=== PATIENT | male | born 1995 | race American Indian/Alaskan Native ===

== ENCOUNTER 2018-11-05 15:43 | Emergency (ER) | payer OTHER ==
[2018-11-05] MEDS ORDERED: ZOFRAN ODT PO ONE (15:48)
--- NOTE | 2018-11-05 15:48 | Emergency Department Report ---
Blank Doc - Documentation Documentation: This is a 23-year-old male that presents with abdominal pain with n/v. This initial assessment/diagnostic orders/clinical plan/treatment(s) is/are subject to change based on patient's health status, clinical progression and re- assessment by fellow clinical providers in the ED. Further treatment and workup at subsequent clinical providers discretion. Patient/guardians urged not to elope from the ED as their condition may be serious if not clinically assessed and managed. Initial orders include: 1- Patient sent to [facility] for further evaluation and treatment 2-labs 3- UA
[2018-11-05] MEDS ORDERED: ZOFRAN ODT ONE (15:52)
[2018-11-05 16:12] LABS: Basophils % (Auto) 0.3 % (0.0-1.8); Eosinophils % (Auto) 0.6 % (0.0-4.3); Hematocrit 46.7 % (35.5-45.6); Hemoglobin 15.8 gm/dl (11.8-15.2); Lymphocytes # (Auto) 2.1 K/mm3 (1.2-5.4); Lymphocytes % (Auto) 34.5 % (13.4-35.0); Mean Corpuscular HGB Conc 34 % (32-34); Mean Corpuscular Volume 87 fl (84-94); Monocytes # (Auto) 0.4 K/mm3 (0.0-0.8); Monocytes % (Auto) 6.4 % (0.0-7.3); Platelet Count 194 K/mm3 (140-440); Red Blood Count 5.36 M/mm3 (3.65-5.03); Red Cell Distribution Width 13.1 % (13.2-15.2)
[2018-11-05 17:01] LABS: Alanine Aminotransferase 37 units/L (7-56); Albumin 5.1 g/dL (3.9-5); BUN/Creatinine Ratio 11; Blood Urea Nitrogen 11 mg/dL (9-20); Hemolysis Index 87
[2018-11-05 17:12] LABS: Bilirubin,Direct 0.3 mg/dL (0-0.2)
[2018-11-05] MEDS ORDERED: NACL 0.9% 1000 ML 1,000 ML IV ONE (17:19)
[2018-11-05] MEDS ORDERED: MORPHINE IV ONE (17:20)
--- NOTE | 2018-11-05 17:24 | Emergency Department Report ---
Vomiting/Diarrhea - HPI Chief Complaint: Nausea/Vomiting/Diarrhea Stated Complaint: VOMITTING BLOOD/STOMACH PAIN Time Seen by Provider: 11/05/18 15:47 Duration: 3 Days Severity: severe Nausea/Vomiting Severity: Severe Diarrhea Severity: Moderate Pain Location: Generalized Pain Severity: Severe Symptoms: Yes Watery Diarrhea, Yes Able to Tolerate Fluids, No Bloody diarrhea, No Fever, No Recent Unusual Foods, No Recent Untreated Water, No Recent use of Antibiotics, No Family w/ Similar Symptoms, No Contacts w/ Similar Symptoms, No Rash, No Hematuria, No Recent URI Symptoms Other History: This is a 23-year-old -[place] male who presents with diffuse abdominal pain for 2-3 days. No past medical history. Patient reports pain as sharp stabbing pain that is constant. The patient also admits to diarrhea is liquid and frequent. Patient reports abdominal pain is primarily right upper quadrant. He denies recent travel, unusual foods, urinary frequency, urgency, dysuria. ED Review of Systems ROS: Stated complaint: VOMITTING BLOOD/STOMACH PAIN Other details as noted in HPI Constitutional: denies: chills, fever Respiratory: denies: cough, shortness of breath, wheezing Cardiovascular: denies: chest pain, palpitations Gastrointestinal: abdominal pain, nausea, vomiting, diarrhea. denies: constipation Genitourinary: denies: urgency, dysuria Musculoskeletal: denies: back pain, joint swelling, arthralgia Skin: denies: rash, lesions Neurological: denies: headache, weakness, paresthesias Psychiatric: denies: anxiety, depression ED Past Medical Hx - Social History Smoking Status: Never Smoker Substance Use Type: Alcohol - Medications Home Medications: Home Medications Medication Instructions Recorded Confirmed Last Taken Type Ciprofloxacin HCl [Cipro] 500 mg PO BID #10 tablet 11/05/18 Unknown Rx Loperamide HCl [Imodium A-D] 2 mg PO DAILY PRN #14 tablet 11/05/18 Unknown Rx Ondansetron [Zofran Odt] 4 mg PO Q8HR PRN #15 tab.rapdis 11/05/18 Unknown Rx Vomiting Diarrhea Exam - Exam General: Vital signs noted. No distress. Alert and acting appropriately. HEENT: Yes Pharyngeal Erythema (erythematous posterior pharynx, uvula midline), Yes Moist Mucous Membranes, No Pharyngeal Exudates, No Rhinorrhea, No Conjuctival Injection, No Frontal Tenderness, No Maxillary Tenderness Neck: No Adenopathy, No Rigidity Lungs: Yes Clear Lung Sounds, Yes Good Air Exchange, No Wheezes, No Stridor, No Cough, No Nasal Flaring, No Retractions, No Use of Accessory Muscles Heart exam: Regular: Yes, Murmur: No, Tachycardia: No Abdomen: Tenderness: Yes (left lower quadrant), Peritoneal Signs: No, Distention: No, Hyperactive Bowel sounds: No Skin exam: Rash: No, Edema: No, Normal turgor: Yes Neurologic: Alert and oriented, no deficits. Musculoskeletal: Unremarkable. ED Course Vital Signs 11/05/18 15:47 Temperature 97.6 F Pulse Rate 54 L Respiratory 16 Rate Blood Pressure 134/53 O2 Sat by Pulse 99 Oximetry ED Medical Decision Making - Lab Data Result diagrams: 11/05/18 16:01 11/05/18 16:01 Lab Results 11/05/18 11/05/18 11/05/18 Range/Units 16:01 16:01 20:00 WBC 6.0 (4.5-11.0) K/mm3 RBC 5.36 H (3.65-5.03) M/mm3 Hgb 15.8 H (11.8-15.2) gm/dl Hct 46.7 H (35.5-45.6) % MCV 87 (84-94) fl MCH 30 (28-32) pg MCHC 34 (32-34) % RDW 13.1 L (13.2-15.2) % Plt Count 194 (140-440) K/mm3 Lymph % (Auto) 34.5 (13.4-35.0) % Parker % (Auto) 6.4 (0.0-7.3) % Eos % (Auto) 0.6 (0.0-4.3) % Baso % (Auto) 0.3 (0.0-1.8) % Lymph # 2.1 (1.2-5.4) K/mm3 Parker # 0.4 (0.0-0.8) K/mm3 Eos # 0.0 (0.0-0.4) K/mm3 Baso # 0.0 (0.0-0.1) K/mm3 Seg Neutrophils % 58.2 (40.0-70.0) % Seg Neutrophils # 3.5 (1.8-7.7) K/mm3 Sodium 140 (137-145) mmol/L Potassium 3.9 (3.6-5.0) mmol/L Chloride 101.8 (98-107) mmol/L Carbon Dioxide 22 (22-30) mmol/L Anion Gap 20 mmol/L BUN 11 (9-20) mg/dL Creatinine 1.0 (0.8-1.5) mg/dL Estimated GFR > 60 ml/min BUN/Creatinine Ratio 11 % Glucose 96 (75-100) mg/dL Calcium 10.0 (8.4-10.2) mg/dL Total Bilirubin 2.10 H (0.1-1.2) mg/dL Direct Bilirubin 0.3 H (0-0.2) mg/dL Indirect Bilirubin 1.8 mg/dL AST 30 (5-40) units/L ALT 37 (7-56) units/L Alkaline Phosphatase 53 (35-129) units/L Total Protein 8.1 (6.3-8.2) g/dL Albumin 5.1 H (3.9-5) g/dL Albumin/Globulin Ratio 1.7 % Lipase 19 (13-60) units/L Urine Color Yellow (Yellow) Urine Turbidity Clear (Clear) Urine pH 6.0 (5.0-7.0) Ur Specific [place] 1.031 H (1.003-1.030) Urine Protein <15 mg/dl (Negative) mg/dL Urine Glucose (UA) Neg (Negative) mg/dL Urine Ketones 80 (Negative) mg/dL Urine Blood Neg (Negative) Urine Nitrite Neg (Negative) Urine Bilirubin Neg (Negative) Urine Urobilinogen < 2.0 (<2.0) mg/dL Ur Leukocyte Esterase Neg (Negative) Urine WBC (Auto) 2.0 (0.0-6.0) /HPF Urine RBC (Auto) 3.0 (0.0-6.0) /HPF U Epithel Cells (Auto) < 1.0 (0-13.0) /HPF Urine Mucus 1+ /HPF - Radiology Data Radiology results: report reviewed PROCEDURE: CT ABDOMEN PELVIS WO CON TECHNIQUE: CT examination of the abdomen without IV contrast CT examination of the pelvis without IV contrast Lack of oral and IV contrast limits the examination. HISTORY: LLQ tenderness COMPARISONS: None FINDINGS: No acute lung base finding. No acute fracture. Normal noncontrast appearance of the liver, gallbladder, adrenals, pancreas, and spleen. Normal caliber abdominal aorta and IVC. Normal- appearing kidneys and proximal ureters. Distal ureters are obscured by adjacent structures. Intact anterior abdominal wall without hernia. No evidence of retroperitoneal adenopathy. No mesenteric mass. Normal-appearing stomach and duodenum. No small bowel distention in the abdomen and pelvis. There appears to be a nonspecific collection of amorphous soft tissue just above the urinary bladder which appears contiguous with pelvic small bowel, series 2 image 138. This may reflect summation artifact from adjacent loops of small bowel. A small bowel or mesenteric focal abnormality is a possibility measuring approximately 3.6 x 4.4 cm. Nonspecific slight cul-de-sac free fluid may be reactive. Normal-appearing urinary bladder, prostate, seminal vesicles, and rectum. No sigmoid colon abnormality. No gross ascites, free air, or colonic distention. Slight luminal density in the ascending colon may reflect ingested medicine. Normal-appearing cecum and terminal ileum. Normal appendix. IMPRESSION: Nonspecific heterogeneous soft tissue prominence in the lower pelvis mesenteric fat may be summation artifact from adjacent small bowel loops. Differential includes edema, inflammation, or focal small bowel infection. Consider also mesenteric or small intestinal mass in this region Slight cul-de-sac pelvic free fluid may be reactive - Medical Decision Making Patient is stable and was examined by me. Vitals stable. Obtained labs and CT of abdomen. Bilirubin and albumin elevated. CT dictated by radiologist and report reviewed by myself. Nonspecific heterogeneous soft tissue prominence in the lower pelvis mesenteric fat may be summation artifact from adjacent small bowel loops. Differential includes edema, inflammation, or focal small bowel infection. Consider also mesenteric or small intestinal mass in this region. Slight cul-de-sac pelvic free fluid may be reactive. Given Pepcid, Zofran, morphine and normal saline IV in ER. Plan to start Imodium, Cipro, and zofran for gastritis. Referral to ethanol maintenance mechanic for continued care. Discussed plan with patient and agreed to plan. No further questions noted by the patient. Discharged home in stable condition. Follow up with PCP in 2-3 days. Critical care attestation.: If time is entered above; I have spent that time in minutes in the direct care of this critically ill patient, excluding procedure time. ED Disposition Clinical Impression: Nausea, vomiting, and diarrhea, Gastroenteritis Abdominal pain Qualifiers: Abdominal location: generalized Qualified Code(s): R10.84 - Generalized abdominal pain Disposition: DC-01 TO HOME OR SELFCARE Is pt being admited?: No Does the pt Need Aspirin: No Condition: Stable Instructions: Abdominal Pain (ED), Acute Nausea and Vomiting (ED), Acute Diarrhea (ED) Additional Instructions: Frequent hand washing is important to reduce spread. Prompt disinfection of contaminated surfaces with household chlorine bleach- based artist's model and washing of soiled clothing and bedding should be advised. If food or water is thought to be contaminated, it should be avoided. Increase fluid intake. Drinks high in sugars such as carbonated soft drinks, fruit juice, and highly sugared liquids should be avoided. Prescriptions: Ciprofloxacin HCl [Cipro] 500 mg PO BID #10 tablet Loperamide HCl [Imodium A-D] 2 mg PO DAILY PRN #14 tablet PRN Reason: Diarrhea Ondansetron [Zofran Odt] 4 mg PO Q8HR PRN #15 tab.rapdis PRN Reason: Nausea And Vomiting [facility] [Outside] - 3-5 Days [facility] [Provider Group] - 3-5 Days Forms: Work/School Release Form(ED) Time of Disposition: 20:50
[2018-11-05] MEDS ORDERED: PEPCID IV ONE ×2 (17:46→17:49)
[2018-11-05 17:58] VITALS: BP 137/62
--- NOTE | 2018-11-05 18:55 | Cat Scan Report ---
PROCEDURE: CT ABDOMEN PELVIS WO CON TECHNIQUE: CT examination of the abdomen without IV contrast CT examination of the pelvis without IV contrast Lack of oral and IV contrast limits the examination. HISTORY: LLQ tenderness COMPARISONS: None FINDINGS: No acute lung base finding. No acute fracture. Normal noncontrast appearance of the liver, gallbladde r, adrenals, pancreas, and spleen. Normal caliber abdominal aorta and IVC. Normal-appearing kidneys a nd proximal ureters. Distal ureters are obscured by adjacent structures. Intact anterior abdominal wa ll without hernia. No evidence of retroperitoneal adenopathy. No mesenteric mass. Normal-appearing st omach and duodenum. No small bowel distention in the abdomen and pelvis. There appears to be a nonspecific collection of amorphous soft tissue just above the urinary bladder which appears contiguous with pelvic small bowel, series 2 image 138. This may reflect summation jade fact from adjacent loops of small bowel. A small bowel or mesenteric focal abnormality is a possibili ty measuring approximately 3.6 x 4.4 cm. Nonspecific slight cul-de-sac free fluid may be reactive. Normal-appearing urinary bladder, prostate, seminal vesicles, and rectum. No sigmoid colon abnormalit y. No gross ascites, free air, or colonic distention. Slight luminal density in the ascending colon m ay reflect ingested medicine. Normal-appearing cecum and terminal ileum. Normal appendix. IMPRESSION: Nonspecific heterogeneous soft tissue prominence in the lower pelvis mesenteric fat may be summation artifact from adjacent small bowel loops. Differential includes edema, inflammation, or focal small b owel infection. Consider also mesenteric or small intestinal mass in this region Slight cul-de-sac pelvic free fluid may be reactive This document is electronically signed by Jacob Ac MD., November 05 2018 06:53:47 PM ET
[2018-11-05 20:11] LABS: Bilirubin,Urine NEG (Negative); Blood,Urine NEG (Negative); Color,Urine Yellow (Yellow); Mucus,Urine 1+ /HPF; Protein,Urine <15 mg/dL mg/dL (Negative); Urobilinogen,Urine < 2.0 mg/dL (<2.0)
== END 2018-11-05 21:08 | disposition home or self-care (01) ==
LOC: ED 15:43
DX: K52.9 Noninfective gastroenteritis and colitis, unspecified (principal)
CPT/HCPCS: 36415; 74176; 80048; 80076; 81001; 83690; 85025; 96367; 96374; 96375; 99284; J2270; J7030; 96361; Q0162